=== PATIENT | female | born 1990 | race Caucasian/White ===

== ENCOUNTER 2021-10-31 12:18 | Emergency (ER) | payer OTHER, SELFPAY ==
[2021-10-31 12:36] VITALS: BP 122/65; PULSE 80; RESP 16; TEMP 36.3; O2SAT 100
--- NOTE | 2021-10-31 12:45 | DI.RAD_ITS ---
Exam(s) XR FINGER LT MIDDLE XR FINGER LT RING EXAM: XR FINGER LT MIDDLE CLINICAL HISTORY: crush injury TECHNIQUE: COMPARISON: CR XR FINGER LT RING from 10/31/2021 FINDINGS: Three views of the ring finger and three views of the middle finger were obtained. There is a radiol ucency projected through the distal phalanx of the ring finger, this may possibly represent a nutrien t foramen but it appears to be unique in appearance with the comparable phalanges and probably repres ents a nondisplaced fracture. No other fracture seen. IMPRESSION: Probable nondisplaced fracture distal phalanx ring finger. RADIATION DOSE DELIVERED: Total DLP
--- NOTE | 2021-10-31 12:58 | ED.GENADUL_ITS ---
Discharge Plan Disposition Patient Disposition: HOME Condition: Good Discharge Details Clinical Impression: Closed fracture of tuft of distal phalanx of finger Primary Care Provider: None,None ED Provider: Isidro Preciado Home Meds and New Rx's Prescriptions: No Action No Known Home Meds 0RF Discharge Instructions Additional Instructions: Please use the splint 24/7 digit for the next 2 weeks. Please follow-up with orthopedics in the next few weeks to repeat exam and further evaluation. You may take Tylenol 1 g every 6 hours for the pain. Also take ibuprofen 400 mg every 8 hours for the pain Remember to elevate your feet above your heart this will help reduce the pain. HPI General Date/Time Provider Initiated Documentation: 10/31/21 12:58 . HPI Narrative: 31 yo lady opresents with a crush injury to the left 3/4 digits atwork. Her fingers were crushed in a heavy door. she did sustain some abrasions . no active bleeding. mild numbness distal to the crush site severity moderate / sharp /sudden onset - worse with movement and touch. better with rest Patient is up-to-date with tetanus Related Data Home Medications Medication Instructions Recorded Confirmed Unknown [No Known Home Meds] 10/31/21 10/31/21 Allergies Allergy/AdvReac Type Severity Reaction Status Date / Time clindamycin Allergy Mild Hives Unverified 10/31/21 12:46 General Stated Complaint: Orthopedic CARL: 4 Review of Systems Narrative: cont - neg GI no n/v MSK see HPI Skin -see hpi Neuro see HPI Hemato - no blod thinner PFSH All Active Problems (Updated 10/31/21 @ 13:58 by Isidro Preciado MD) Closed fracture of tuft of distal phalanx of finger (Acute) Social History Smoking/Tobacco Use Status: Current every day Tobacco Type: cigarettes Smoking risk assessment performed?: Yes Alcohol Intake: current Alcohol Intake frequency: 0-2 drinks per day Drug use: Never Substance use type: does not use Do you feel safe at home: Yes Do you feel safe in your relationship?: Yes Exam Narrative Exam Narrative: Constitutional negative fevers and chills. Patient does appear uncomfortable. Urine. PERRLA EOMI Respiratory no distress Left hand. Patient does have some abrasions on the dorsal and volar aspect of the third and fourth digit. Lesions are very minimal swelling. She does have range of motion actively cause her some pain. No decrease sensation distal to the injury. Psych normal affect. Course X-rays of the patient revealed a nondisplaced fracture of the distal phalanx of the fourth digit. Results were discussed with the patient. She does have some abrasions overlying the midportion of her very superficial. No reason for antibiotics. Plan is for immobilization for couple weeks and follow-up with o rtho Vital Signs Vital signs: Vital Signs Temperature 36.3 C L 10/31/21 12:36 Pulse 80 10/31/21 12:36 Respiratory Rate 16 10/31/21 12:36 Blood Pressure 122/65 10/31/21 12:36 Pulse Oximetry 100 10/31/21 12:36 Temperature 36.3 C L 10/31/21 12:36 Pulse 80 10/31/21 12:36 Respiratory Rate 16 10/31/21 12:36 Respiratory Effort 10/31/21 12:50 Blood Pressure 122/65 10/31/21 12:36 Pulse Oximetry 100 10/31/21 12:36 Pain Level 6 10/31/21 12:36
[2021-10-31] MEDS: Acetaminophen 500 MG TAB 1000 MG PO (13:20)
--- NOTE | 2021-11-01 08:50 | W.ED.FU ---
Date of service: 11/01/21 Time of Service: 08:50 Follow Up Plan: I received a call from Dr. Gomez who noted the patient's ring remained on her finger on radiograph obtained yesterday. Patient's phone went to voicemail, I left a message for her regarding this finding and need for removal of the ring if that had not been already performed.
== END 2021-10-31 14:32 | disposition home or self-care (01) ==
PROVIDERS: Emergency Provider Emergency Medicine
DX: S62.665A Nondisplaced fracture of distal phalanx of left ring finger, initial encounter for closed fracture (principal); W23.0XXA Caught, crushed, jammed, or pinched between moving objects, initial encounter
CPT/HCPCS: 29130; 99283; 73140